=== PATIENT | male | born 1955 | race Caucasian/White ===

== ENCOUNTER 2024-01-16 09:26 | Emergency (ER) | payer MEDICARE, OTHER ==
[2024-01-16] MEDS ORDERED: Nitroglycerin 0.4 MG Tab.SL SL PRN (09:35)
[2024-01-16 09:40] LABS: BASOPHILS ABSOLUTE AUTO 0.07 K/uL (0.00-0.10); BASOPHILS PERCENT AUTO 0.9 % (0.1-1.3); EOSINOPHILS PERCENT AUTO 1.3 % (0.0-5.4); HEMOGLOBIN 14.7 g/dL (12.9-16.9); IMMATURE GRAN ABSOLUTE AUTO 0.06 K/uL (0.00-0.23); IMMATURE GRAN PERCENT AUTO 0.8 % (0.0-0.7); LYMPHOCYTES ABSOLUTE AUTO 1.52 K/uL (0.8-3.3); LYMPHOCYTES PERCENT AUTO 19.4 % (11.4-47.7); MEAN CORPUSCULAR HEMOGLOBIN 30.6 pg (31.6-35.5); MEAN CORPUSCULAR HGB CONC 33.4 g/dL (31.6-35.5); MEAN CORPUSCULAR VOLUME 91.7 fL (81.4-99.0); MONOCYTES ABSOLUTE AUTO 0.61 K/uL (0.20-0.90); MONOCYTES PERCENT AUTO 7.8 % (3.3-12.6); NEUTROPHILS ABSOLUTE AUTO 5.49 K/uL (1.0-7.6); NEUTROPHILS PERCENT AUTO 69.8 % (40.0-78.1); PLATELET COUNT,PLT 232 K/uL (130-375); WHITE BLOOD CELL COUNT,WBC 7.9 K/uL (3.2-11.0)
[2024-01-16] MEDS: Aspirin 81 MG Tab.Chew PO ONE (09:45)
[2024-01-16] MEDS: Sodium Chloride 0.9% 1,000 ML IV SCH (09:48)
[2024-01-16] MEDS: Morphine 4 MG/ML Syringe IVPUSH PRN (09:48)
[2024-01-16] MEDS: Sodium Chloride 0.9% 10 ML Syringe FLUSH PRN (09:49)
[2024-01-16 09:59] LABS: A/G RATIO 1.1 (1.2-2.2); ALANINE AMINOTRANSFERASE,ALT 22 U/L (12-78); ALBUMIN 3.6 g/dL (3.4-5.0); ALKALINE PHOSPHATASE 115 U/L (46-116); ASPARTATE AMNIOTRANSFERASE,AST 19 U/L (15-37); BILIRUBIN TOTAL 0.7 mg/dL (0.2-1.0); BLOOD UREA NITROGEN,BUN 15 mg/dL (7-18); CALCIUM 9.1 mg/dL (8.5-10.1); CARBON DIOXIDE,CO2 29 mmol/L (21-32); CHLORIDE,CL 103 mmol/L (100-108); CREATININE 1.4 mg/dL (0.8-1.3); ESTIMATED GFR 55 mL/min (>60); GLUCOSE RANDOM 155 mg/dL (74-106); POTASSIUM,K 4.5 mmol/L (3.6-5.2); PROTEIN TOTAL,TP 6.8 g/dL (6.4-8.2); SODIUM,NA 138 mmol/L (140-148)
[2024-01-16 10:00] LABS: ANION GAP 10.5 mmol/L (5.0-14.0)
[2024-01-16] MEDS: Norepinephrine Bit/D5W Premix 4 MG in Premix Bag 1 BAG IV SCH (10:09)
[2024-01-16] MEDS: Heparin Sodium 5,000 Units/ML Vial IVPUSH ONE (10:11)
[2024-01-16] MEDS: Heparin Sodium/D5W 25,000 UNITS/500 ML BAG IV SCH (10:12)
[2024-01-16] MEDS: Heparin Sodium/D5W 500 ML ONE (10:15)
[2024-01-16] MEDS: Heparin Sodium 5,000 Units/ML Vial ONE (10:15)
[2024-01-16] MEDS: Norepinephrine Bit/D5W Premix 250 ML ONE (10:16)
[2024-01-16 10:18] LABS: INR 2.5
[2024-01-16] MEDS: Nitroglycerin/D5W 25 MG/250 ML BOTTLE IV SCH (10:18)
== END 2024-01-16 10:55 ==
LOC: JP.ED 09:26
DX: I21.19 ST elevation (STEMI) myocardial infarction involving other coronary artery of inferior wall (principal); I25.10 Atherosclerotic heart disease of native coronary artery without angina pectoris; E78.00 Pure hypercholesterolemia, unspecified; I10 Essential (primary) hypertension; Z79.82 Long term (current) use of aspirin; Z95.1 Presence of aortocoronary bypass graft; Z87.891 Personal history of nicotine dependence; Z79.01 Long term (current) use of anticoagulants; Z79.899 Other long term (current) drug therapy
CPT/HCPCS: 36415; 71045; 80053; 83690; 84484; 85025; 85610; 93005; 96365; 96368; 96375; 99285; A9270; J1644; J2270; J2305; J3490; J7030

== ENCOUNTER 2024-02-19 19:12 | Emergency (ER) | payer OTHER ==
[2024-02-19] MEDS: Doxycycline 100 MG Cap PO ONE (20:35)
== END 2024-02-19 20:43 | disposition home or self-care (01) ==
LOC: JP.ED 19:12
DX: S30.861A Insect bite (nonvenomous) of abdominal wall, initial encounter (principal); I25.10 Atherosclerotic heart disease of native coronary artery without angina pectoris; I10 Essential (primary) hypertension; I25.2 Old myocardial infarction; E78.00 Pure hypercholesterolemia, unspecified; Z95.1 Presence of aortocoronary bypass graft; Z79.01 Long term (current) use of anticoagulants; Z79.899 Other long term (current) drug therapy; W57.XXXA Bitten or stung by nonvenomous insect and other nonvenomous arthropods, initial encounter
CPT/HCPCS: 99282; A9270